=== PATIENT | female | born 1955 | race Caucasian/White ===

== ENCOUNTER 2018-04-05 02:32 | Emergency (ER) | payer BC ==
[~2018-04-05] VITALS: Ht 167.6 cm; Wt 82.3 kg
[2018-04-05 02:40] VITALS: Ht 167.6 cm; Wt 82.3 kg
[2018-04-05] MEDS ORDERED: COREG25 MG PO (02:42)
[2018-04-05] MEDS ORDERED: LANOXIN125 MCG PO (02:43)
[2018-04-05] MEDS ORDERED: ARMOUR THYROID30 MG PO (02:43)
[2018-04-05] MEDS ORDERED: ELIQUIS5 MG PO (02:43)
[2018-04-05] MEDS ORDERED: ALDACTONE25 MG PO (02:44)
[2018-04-05] MEDS ORDERED: K-DUR20 MEQ PO (02:44)
[2018-04-05] MEDS ORDERED: ENTRESTO 49 MG1 EACH PO (02:45)
[2018-04-05] MEDS ORDERED: NAPROSYN500 MG PO (03:33)
[2018-04-05 04:06] VITALS: BP 132/87
== END 2018-04-05 04:06 | disposition home or self-care (01) ==
LOC: D.ER 02:32
DX: S46.911A Strain of unspecified muscle, fascia and tendon at shoulder and upper arm level, right arm, initial encounter (principal); W18.30XA Fall on same level, unspecified, initial encounter; Y93.89 Activity, other specified; Y92.238 Other place in hospital as the place of occurrence of the external cause; Z95.0 Presence of cardiac pacemaker; Z86.79 Personal history of other diseases of the circulatory system